=== PATIENT | male | born 1960 | race Caucasian/White ===

== ENCOUNTER 2017-09-05 12:51 | Emergency (ER) | payer OTHER ==
[~2017-09-05] VITALS: Ht 185.4 cm; Wt 111.6 kg
[~2017-09-05 12:51] MED LIST: AMOXIL500 MG PO; ASPIRIN CHILDRE81 MG PO; BACTRIM DS 8001 TAB PO; CEPHALEXIN500 MG PO; FISH OIL CONC1000 MG PO; LOTRISONE CREAM15 GM TOP; PRILOSEC OTC20 M1 PO; VITAMIN D50000 IU PO
--- NOTE | 2017-09-05 14:01 | ED GENERAL ADULT ---
History of Present Illness General Chief Complaint: General Adult Stated Complaint: PT STATES"TOOK A BIT OF SISTERS CBD OIL" Source: patient Exam Limitations: no limitations Vital Signs & Intake/Output Vital Signs & Intake/Output Vital Signs Date Time Temp Pulse Resp B/P B/P Pulse O2 O2 Flow FiO2 Mean Ox Delivery Rate 09/05 1556 84 18 126/72 97 Room Air 09/05 1313 97.4 71 18 155/82 99 Room Air Allergies Coded Allergies: NO KNOWN ALLERGIES (11/19/16) Reconcile Medications Empagliflozin (Jardiance) 10 MG TABLET 1 TAB PO DAILY DIABETES (Reported) Lisinopril 20 MG TABLET 1 TAB PO DAILY HEART (Reported) Metformin HCl 1,000 MG TABLET 1 TAB PO BID DIABETES (Reported) Triage Note: PT TO ED AFTER "TAKING ONE DROP OF MY SISTER'S CBD OIL" PT REPORTS FEELING JUMPY, "FUNNY AND NOT MYSELFT." Triage Nurses Notes Reviewed? yes Onset: Gradual Duration: hour(s): (6) Timing: no prior history Injury Environment: home Severity: moderate No Modifying Factors: none HPI: Patient is a 57-year-old male presenting to the emergency department with chief complaint of feeling "jittery". Denies any chest pain or palpitations. He reports that he started feeling this way approximately to 3 hours after putting a drop of his sisters cannabis oil in his mouth. He went to see what it would make him feel like. No history of using this in the past. He was at work when symptoms started. Denies any abdominal pain. No nausea or vomiting. Denies back pain. No neck pain. Denies numbness or tingling. (Ursula Martinez) Past History Travel History Traveled to [place] past 21 day No Medical History Any Pertinent Medical History? 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 No (Ursula Martinez) Review of Systems Review of Systems Constitutional: Reports: malaise. Comments Review of systems: See HPI, All other systems negative. Constitutional, no chills fever or weight loss HEENT: No visual changes no sore throat no congestion Cardiovascular: No chest pain ,palpitation , orthopnea or ankle swelling Skin, no jaundice no rashes Respiratory: No dyspnea cough sputum or hemoptysis GI: No nausea no vomiting : No dysuria No hematuria Muscle skeletal: no back pain, no neck pain, Neurologic: No numbness no confusion NO HEADACHE Psych: No stress anxiety or depression,. Heme/endocrine: No bruising no bleeding no polyuria or polydipsia Immunology: No splenectomy or history of AIDS (Ursula Martinez) Physical Exam Physical Exam General Appearance: well developed/nourished, no apparent distress, alert, awake , comfortable Comments: Well-developed well-nourished person in no acute distress HEENT: extraocular motion intact, no nystagmus. Pupils equally round and reactive to light and accommodation. Nose is atraumatic. External auditory canal and Tympanic membranes clear. Pharynx normal. No swelling or edema. Neck: Supple, no lymphadenopathy, normal range of motion without pain or tenderness Cardiovascular: Regular rate and rhythms no murmurs rubs or gallops, normal JVP Respiratory: Chest nontender. No respiratory distress.breath sounds clear to auscultation bilaterally Abdomen: Soft, nontender nondistended, no appreciable organomegaly. Normal bowel sounds. No ascites Extremity: No edema, full range of motion of upper and lower extremities without difficulty or pain. Internet Developer strength is equal and symmetric bilaterally. Muscular strength is 5 out of 5 in upper and lower extremities. Neuro: Alert oriented x3, motor sensory normal, cranial nerves II through XII grossly intact. Cerebellar testing is unremarkable. Skin: No appreciable rash on exposed skin, skin is warm and dry. Psych: Mood and affect is normal, memory and judgment is normal. Core Measures ACS in differential dx? No CVA/TIA Diagnosis: No Sepsis Present: No Sepsis Focused Exam Completed? No (Ursula Martinez) Progress Differential Diagnoses I considered the following diagnoses in my evaluation of the patient: Medication reaction/side effect, electrolyte abnormality, thyroid dysfunction, anxiety Plan of Care: Orders Procedure Date/time Status TSH REFLEX 09/05 1414 Complete COMPREHENSIVE METABOLIC PANEL 09/05 141 Complete CBC WITHOUT DIFFERENTIAL 09/05 141 Complete URINE DRUG SCREEN FOR ER ONLY 09/05 1355 Complete Laboratory Tests 09/05/17 1452: Anion Gap 16, Estimated GFR > 60, BUN/Creatinine Ratio 21.3, Glucose 150 H, Calcium 9.4, Total Bilirubin 0.6, AST 25, ALT 37, Alkaline Phosphatase 66, Total Protein 7.7, Albumin 4.4, Globulin 3.3, Albumin/Globulin Ratio 1.3, TSH &T3 & Free T4 Intrp 1.820, CBC w Diff NO MAN DIFF REQ, RBC 4.53 L, MCV 85.4, MCH 28.8 , RDW 14.2, MPV 8.7, Gran % 81.9 H, Lymphocytes % 12.6 L, Monocytes % 5.0, Eosinophils % 0.2, Basophils % 0.3, Absolute Granulocytes 9.4 H, Absolute Lymphocytes 1.4, Absolute Monocytes 0.6, Absolute Eosinophils 0, Absolute Basophils 0, PUBS MCHC 33.7 09/05/17 1412: Urine Opiates Screen < 100.00, Methadone Screen < 40, Barbiturate Screen < 60, Ur Phencyclidine Scrn < 6.00, Amphetamines Screen < 100, U Benzodiazepines Scrn < 85, Urine Cocaine Screen < 50, Urine Cannabis Screen > 80.00 H Patient informed of all lab work results. Positive cannabis noted in urine drug screen. Consistent with patient's symptoms. Likely reaction from the cannabis oil. Patient advised against using it future. Patient has a ride home, he'll follow up with his primary care physician in 5-7 days. Educated on signs and symptoms to return. Initial ED EKG: none (Ursula Martinez) Departure Departure Time of Disposition: 1544 Disposition: HOME OR SELF CARE Condition: Stable Clinical Impression Primary Impression: Adverse reaction to cannabis Qualifiers: Encounter type: initial encounter Qualified Code: T40.7X5A - Adverse effect of cannabis (derivatives), initial encounter Referrals: Louise ANDREW,Janet Miller (PCP/Family) Additional Instructions: Follow-up with your primary care physician, call to make an appointment for the next 5-7 days. Return for worsening symptoms or concerns. Avoid taking medications that are not prescribed to. Increase fluids. 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 I have also reviewed all the pertinent lab results and diagnostic results. I agree with the findings and the plan of care as documented in the PA's/WASHING MACHINE STRIPER's documentation. [x] I have reviewed the ED Record and agree with the PA's/WASHING MACHINE STRIPER's documentation. [] Additions or exceptions (if any) to the PAs/WASHING MACHINE STRIPER's note and plan are summarized below: [] (Jacky LUONG,Chencho Blum) Critical Care Note Critical Care Note Critical Care Time: non-applicable (Kolby JONES,Ursula)
[2017-09-05] MEDS ORDERED: LISINOPRIL20 M1 PO (14:20)
[2017-09-05] MEDS ORDERED: METFORMIN HCL1000 M1 PO (14:20)
[2017-09-05] MEDS ORDERED: JARDIANCE10 M1 PO (14:21)
[2017-09-05 15:32] LABS: ABSOLUTE BASOPHIL COUNT 0 /CUMM (0.0-0.2); ABSOLUTE EOSINOPHIL COUNT 0 /CUMM (0.0-0.7); ABSOLUTE GRANULOCYTE CT 9.4 /CUMM (1.4-6.5); ABSOLUTE LYMPH COUNT 1.4 /CUMM (1.2-3.4); ABSOLUTE MONOCYTE COUNT 0.6 /CUMM (0.10-0.60); BASOPHIL % 0.3 % (0.0-2.0); EOSINOPHIL % 0.2 % (0-5); GRANULOCYTE % 81.9 % (42.2-75.2); HEMATOCRIT 38.7 % (42-52); MEAN CORPUSCULAR HGB 28.8 PG (27.0-31.0); MEAN CORPUSCULAR HGB CONC 33.7 G/DL (33.0-37.0); MEAN CORPUSCULAR VOLUME 85.4 FL (80.0-94.0); MEAN PLATELET VOLUME 8.7 FL (7.4-10.4); PLATELET COUNT 249 /CUMM (130-400); RBC DISTRIBUTION WIDTH 14.2 % (11.5-14.5); RED BLOOD CELL CT 4.53 /CUMM (4.70-6.10); WHITE BLOOD CELL COUNT 11.4 /CUMM (4.8-10.8)
[2017-09-05 15:56] VITALS: BP 126/72
== END 2017-09-05 15:57 ==
LOC: ERH 12:51
PROVIDERS: Physician Assistant
DX: T40.7X5A Adverse effect of cannabis (derivatives), initial encounter (principal)
CPT/HCPCS: 80307

== ENCOUNTER 2018-03-16 12:55 | Emergency (ER) | payer OTHER ==
[~2018-03-16] VITALS: Ht 188 cm; Wt 108.9 kg
[~2018-03-16 12:55] MED LIST changes: +JARDIANCE10 M1 PO; +LISINOPRIL20 M1 PO; +METFORMIN HCL1000 M1 PO
--- NOTE | 2018-03-16 13:11 | ED UPPER/LOWER EXTREMITY COMPL ---
History of Present Illness General Chief Complaint: Upper Extremity Problem Stated Complaint: RT SIDED SHOULDER PAIN Source: patient, old records Exam Limitations: no limitations Vital Signs & Intake/Output Vital Signs & Intake/Output Vital Signs Date Time Temp Pulse Resp B/P B/P Pulse O2 O2 Flow FiO2 Mean Ox Delivery Rate 03/16 1342 07 Room Air Room Air 03/16 1304 98.0 03/16 1302 98.0 73 18 154/89 97 Room Air Allergies Coded Allergies: NO KNOWN ALLERGIES (11/19/16) Reconcile Medications Aspirin (Ecotrin*) 81 MG TABLET.DR 1 TAB PO DAILY HEART/BLOOD (Reported) Cholecalciferol (Vitamin D3) (Vitamin D) (Unknown Strength) TABLET (Unknown Dose) PO DAILY SUPPLEMENT (Reported) Empagliflozin (Jardiance) 10 MG TABLET 1 TAB PO DAILY DIABETES (Reported) Lisinopril 20 MG TABLET 1 TAB PO DAILY HEART (Reported) Metformin HCl 1,000 MG TABLET 1 TAB PO BID DIABETES (Reported) Lusk-3S/Dha/Epa/Fish Oil (Fish Oil 1,200 MG Softgel) (Unknown Strength) CAPSULE (Unknown Dose) PO DAILY SUPPLEMENT (Reported) Triage Note: PT C/O TINGLING UP HIS RIGHT ARM. PT STATES HIS RIGHT CHEST HURTS EVERYTIME HE MOVES. PT STATSE THIS HAS BEEN HAPPENING FOR THE PAST 4 DAYS. Triage Nurses Notes Reviewed? yes HPI: Patient presents complaining of a tingling sensation that radiates from his right wrist up towards his right shoulder and then a tightness that radiates across to his right shoulder blade and into the right portion of his chest. The tightness increases with any movement. The tingling is constant and there are no aggravating or mitigating factors. There is no weakness. Patient states he is able to hold things in his hand normally. He denies any shortness of breath. He denies any headache. The tightness is rated as moderate on the pain scale. The pain and tingling have been constant for the past 2 weeks. He does not have an appointment with his primary care physician until March. Patient is just concerned because he states that his brother had a heart attack and all of his symptoms were on the right side. Past History Travel History Traveled to [place] past 21 day No Medical History Any Pertinent Medical History? 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 No Review of Systems Review of Systems Constitutional: Reports: no symptoms. EENTM: Reports: no symptoms. Respiratory: Reports: no symptoms. Cardiovascular: Reports: no symptoms. Gastrointestinal/Abdominal: Reports: no symptoms. Genitourinary: Reports: no symptoms. Musculoskeletal: Reports: see HPI. Skin: Reports: no symptoms. Neurological/Psychological: Reports: no symptoms. Hematologic/Endocrine: Reports: no symptoms. Immunological: Reports: no symptoms. All Other Systems: Reviewed and Negative Physical Exam Physical Exam General Appearance: well developed/nourished, mild distress Head: atraumatic Eyes: Bilateral: PERRL, EOMI. Ears, Nose, Throat: normal pharynx, normal ENT inspection, hearing grossly normal Neck: normal inspection, supple, no midline tenderness Cardiovascular/Respiratory: normal breath sounds, normal peripheral pulses, regular rate/rhythm Peripheral Pulses: 3+ radial (R), 3+ radial (L) Back: normal inspection Shoulder Right: normal range of motion, normal inspection Elbow Right: normal range of motion, normal inspection Hand Right: normal inspection, normal range of motion Neurologic/Tendon: normal sensation, normal motor functions, normal tendon functions Skin: intact, normal color, warm/dry Lymphatic: no anterior cervical joelle Progress Differential Diagnosis: sprain, MUSCLE SPASM,AMI, ELECTROLYTE ABNORMALITY Plan of Care: Orders Procedure Date/time Status TROPONIN LEVEL 03/16 1303 Complete COMPREHENSIVE METABOLIC PANEL 03/16 1303 Complete CBC WITHOUT DIFFERENTIAL 03/16 1303 Complete EKG 03/16 1303 Active Laboratory Tests 03/16/18 1314: Anion Gap 12, Estimated GFR > 60, BUN/Creatinine Ratio 20.0, Glucose 156 H, Calcium 9.6, Total Bilirubin 0.7, AST 25, ALT 35, Alkaline Phosphatase 66, Troponin I < 0.01, Total Protein 7.7, Albumin 4.2, Globulin 3.5, Albumin/ Globulin Ratio 1.2, CBC w Diff NO MAN DIFF REQ, RBC 4.65 L, MCV 85.8, MCH 29.2, MCHC 34.0, RDW 13.7, MPV 7.9, Gran % 64.6, Lymphocytes % 25.8, Monocytes % 7.5, Eosinophils % 1.7, Basophils % 0.4, Absolute Granulocytes 5.3, Absolute Lymphocytes 2.1, Absolute Monocytes 0.6, Absolute Eosinophils 0.1, Absolute Basophils 0 Diagnostic Imaging: Viewed by Me: Radiology Read. Discussed w/RAD: Radiology Read. Initial ED EKG: NSR, no ST T wave changes Prior EKG: unchanged Departure Departure Disposition: HOME OR SELF CARE Condition: Stable Clinical Impression Primary Impression: Muscle spasm Referrals: Louise ANDREW,Janet Miller (PCP/Family) Additional Instructions: Use moist heat. Take Flexeril as needed for the pain and spasm. The flexural sedating so do not drive or operate heavy machinery after taking it. Follow-up with her primary care physician. Return if symptoms worsen or for any concerns. Departure Forms: Customer Survey General Discharge Information Prescriptions: Current Visit Scripts Cyclobenzaprine HCl 1 TAB PO TID PRN PAIN #20 TAB
[2018-03-16 13:25] LABS: ABSOLUTE BASOPHIL COUNT 0 /CUMM (0.0-0.2); ABSOLUTE EOSINOPHIL COUNT 0.1 /CUMM (0.0-0.7); ABSOLUTE GRANULOCYTE CT 5.3 /CUMM (1.4-6.5); ABSOLUTE LYMPH COUNT 2.1 /CUMM (1.2-3.4); ABSOLUTE MONOCYTE COUNT 0.6 /CUMM (0.10-0.60); BASOPHIL % 0.4 % (0.0-2.0); EOSINOPHIL % 1.7 % (0-5); GRANULOCYTE % 64.6 % (42.2-75.2); HEMATOCRIT 39.9 % (42-52); MEAN CORPUSCULAR HGB 29.2 PG (27.0-31.0); MEAN CORPUSCULAR VOLUME 85.8 FL (80.0-94.0); MEAN PLATELET VOLUME 7.9 FL (7.4-10.4); PLATELET COUNT 240 /CUMM (130-400); RBC DISTRIBUTION WIDTH 13.7 % (11.5-14.5); RED BLOOD CELL CT 4.65 /CUMM (4.70-6.10); WHITE BLOOD CELL COUNT 8.1 /CUMM (4.8-10.8)
[2018-03-16] MEDS ORDERED: ASPIRIN EC81 M1 PO (13:27)
[2018-03-16] MEDS ORDERED: VITAMIN D1000 UNIT PO (13:27)
[2018-03-16] MEDS ORDERED: FISH OIL 1,2001 EAC2 PO (13:28)
--- NOTE | 2018-03-16 14:02 | RADIOLOGY REPORT ---
EXAMINATION: XR CHEST CLINICAL INFORMATION: Right-sided chest pain COMPARISON: None TECHNIQUE: 2 views of the chest were obtained. FINDINGS: The cardiac silhouette is upper normal in size. The thoracic aorta appears tortuous. Hilar and mediastinal contours are unremarkable. The lungs are clear. There is no pleural effusion or pneumothorax. There are degenerative changes of the spine. There is an old left anterior second rib fracture. No acute rib fracture is appreciated. There may be curvature of the proximal lumbar spine to the left. IMPRESSION: No evidence for acute disease in the chest.
[2018-03-16] MEDS ORDERED: CYCLOBENZAPRINE10 M1 PO (14:23)
[2018-03-16 15:00] VITALS: BP 139/77
== END 2018-03-16 15:00 ==
LOC: ERH 12:55
PROVIDERS: Physician Assistant Medical
DX: M62.838 Other muscle spasm (principal); M25.511 Pain in right shoulder; R07.89 Other chest pain
CPT/HCPCS: 71046; 93005; 93010